=== PATIENT | female | born 1975 | race Asian ===

== ENCOUNTER 2017-09-04 00:56 | Emergency (ER) | payer MEDICAID ==
[~2017-09-04] VITALS: Ht 162.6 cm; Wt 53.5 kg
[~2017-09-04 00:56] MED LIST: DOCU-144 PO; FERR-57 PO; IBUP-1017 PO; OXYC-130 PO
[2017-09-04 01:05] VITALS: BP_SYST 112
[2017-09-04] MEDS ORDERED: CLINDAMYCIN HCL 150 MG CAPSULE PO ONE (02:00)
[2017-09-04 02:08] VITALS: BP_SYST 112
== END 2017-09-04 02:08 | disposition home or self-care (01) ==
LOC: SED 00:56
DX: L03.115 Cellulitis of right lower limb (principal); F17.200 Nicotine dependence, unspecified, uncomplicated; Z79.899 Other long term (current) drug therapy
CPT/HCPCS: 99283

== ENCOUNTER 2019-01-17 23:22 | Emergency (ER) | payer MEDICAID ==
[~2019-01-17] VITALS: Ht 162.6 cm; Wt 54.4 kg
[2019-01-17 23:55] VITALS: BP_SYST 131
--- NOTE | 2019-01-18 01:46 | NUR ---
Pt ambulatory to bed 8 for evaluation
[2019-01-18] MEDS ORDERED: BACITRACIN 1 GM OINT TP ONE (02:15)
[2019-01-18] MEDS ORDERED: LIDOCAINE 1% 10 MG/ML, 20 ML MDV IJ ONE (02:15)
[2019-01-18] MEDS ORDERED: DIPH-TET-PERTUS Vaccine 0.5 ML VIAL (ADACEL) IM ONE (02:15)
--- NOTE | 2019-01-18 02:15 | NUR ---
Dr. Souza bedside for Pt eval
--- NOTE | 2019-01-18 02:20 | NUR ---
Pt BIB family to ED C/O left upper eyelid abscess x 1 week. She was plucking her eyebrows when the injury occurred 1 week ago. Her vision is grossly intact but she has swelling on the left eyelid,- eye discharge. No other injuries and or complaints noted. VSS no s/s of acute distress. Resting on [address] rails up
[2019-01-18] MEDS ORDERED: cefTRIAXone 1 GM IVPB PREMIX 50 ML IV ONE (03:00)
[2019-01-18] MEDS ORDERED: MORPHINE 4 MG/ML INJ. SYRINGE IVP ONE (03:15)
--- NOTE | 2019-01-18 03:20 | NUR ---
VSS, no s/s of acute distress. Dr. Souza's bedside procedure well tolerated
[2019-01-18 04:00] VITALS: BP_SYST 132
--- NOTE | 2019-01-18 04:00 | NUR ---
Patient given written and verbal discharge instructions and verbalizes understanding. ER MD discussed with patient the results and treatment provided. Patient in stable condition. ID arm band removed. IV catheter removed intact and dressing applied, no active bleeding. Rx of clindamycin, Bacitracin and Tylenol with Codeine given. Patient educated on pain management and to follow up with PMD. Pain Scale 0/10 Opportunity for questions provided and answered. Medication side effect fact sheet provided.
== END 2019-01-18 04:00 | disposition home or self-care (01) ==
LOC: SED 23:22
DX: H00.034 Abscess of left upper eyelid (principal); Z79.899 Other long term (current) drug therapy
CPT/HCPCS: 10060; 90715; 96365; 96372; 96375; 99283; J0696; J2001; J2270

== ENCOUNTER 2019-01-20 03:23 | Emergency (ER) | payer MEDICAID ==
[~2019-01-20] VITALS: Ht 162.6 cm; Wt 54.4 kg
[2019-01-20 03:35] VITALS: BP_SYST 147
--- NOTE | 2019-01-20 03:35 | NUR ---
Pt ambulatory to bed 8 for evaluation
--- NOTE | 2019-01-20 03:35 | NUR ---
F/U for wound check s/p having a boil lanced and drained to the area beneath left eye brow. No s/s infection, no drainage to site, appears to be healing well. Ecchymosis noted to site and upper eyelid. Denies visual deficits and no c/o pain.
--- NOTE | 2019-01-20 03:55 | NUR ---
Dr. Hua at bedside.
[2019-01-20 06:08] VITALS: BP_SYST 133
--- NOTE | 2019-01-20 06:08 | NUR ---
Patient given written and verbal discharge instructions and verbalizes understanding. ER MD discussed with patient the results and treatment provided. Patient in stable condition. ID arm band removed. Rx of Motrin given. Patient educated on pain management and to follow up with PMD. Pain Scale 0/10. Opportunity for questions provided and answered. Medication side effect fact sheet provided.
== END 2019-01-20 06:08 | disposition home or self-care (01) ==
LOC: SED 03:23
DX: Z48.01 Encounter for change or removal of surgical wound dressing (principal); Z79.899 Other long term (current) drug therapy
CPT/HCPCS: 99284

== ENCOUNTER 2020-11-18 01:26 | Emergency (ER) | payer MEDICAID ==
[~2020-11-18] VITALS: Ht 162.6 cm; Wt 59.0 kg
[2020-11-18 01:47] VITALS: BP_SYST 136
[2020-11-18 03:16] LABS: BILIRUBIN,URINE NEGATIVE (NEGATIVE); BLOOD, URINE NEGATIVE (NEGATIVE); CLARITY/URINE CLEAR (CLEAR); COLOR,URINE YELLOW (YELLOW); GLUCOSE,URINE NEGATIVE (NEGATIVE); KETONES,URINE NEGATIVE (NEGATIVE); LEUKOCYTE ESTERASE ,URINE NEGATIVE (NEGATIVE); NITRITE, URINE NEGATIVE (NEGATIVE); PH,URINE 5.5 (5.0-8.0); PROTEIN URINE NEGATIVE (NEGATIVE); UROBILINOGEN,URINE 0.2 (0.2-1.0)
[2020-11-18 04:03] LABS: BASOPHILS % (AUTO) 0.4 % (0.0-2.0); EOSINOPHILS # (AUTO) 0.1 K/uL (0.0-0.4); EOSINOPHILS % (AUTO) 1.3 % (0.0-4.0); HEMATOCRIT 36.6 % (36-48); HEMOGLOBIN 12.4 g/dL (12.0-16.0); LYMPHOCYTES # (AUTO) 2.3 K/uL (1.0-5.5); LYMPHOCYTES % (AUTO) 25.1 % (20.5-51.5); MEAN CORPUSCULAR HEMOGLOBIN 31 pg (27-31); MEAN CORPUSCULAR HGB CONC 34 % (32-36); MEAN CORPUSCULAR VOLUME 91 fL (79.0-98.0); MONOCYTES # (AUTO) 0.9 K/uL (0.0-1.0); MONOCYTES % (AUTO) 9.2 % (1.7-9.3); NEUTROPHILS # (AUTO) 5.9 K/uL (1.8-7.7); PLATELET COUNT (AUTO) 294 K/uL (130-430); RED BLOOD CELL COUNT(AUTO) 4.03 MIL/uL (4.2-6.2); RED CELL DISTRIBUTION WIDTH 12.9 % (9.0-15.0); WHITE BLOOD COUNT (AUTO) 9.2 K/uL (4.8-10.8)
[2020-11-18 06:16] VITALS: BP_SYST 136
== END 2020-11-18 06:15 | disposition home or self-care (01) ==
LOC: SED 01:26
DX: O26.891 Other specified pregnancy related conditions, first trimester (principal); R10.30 Lower abdominal pain, unspecified; Z3A.01 Less than 8 weeks gestation of pregnancy; Z79.899 Other long term (current) drug therapy
CPT/HCPCS: 36415; 76805-TC; 81003; 81025; 84702; 85025; 86900; 86901; 99285

== ENCOUNTER 2021-08-06 08:07 | Emergency (ER) | payer MEDICAID ==
[~2021-08-06] VITALS: Ht 162.6 cm; Wt 59.0 kg
[2021-08-06 08:20] VITALS: BP_SYST 147
[2021-08-06] MEDS ORDERED: DIPH-TET-PERTUS Vaccine 0.5 ML VIAL (ADACEL) I.M. ONE (08:45)
[2021-08-06] MEDS ORDERED: BACITRACIN 1 GM OINT TP ONE (08:45)
[2021-08-06] MEDS ORDERED: LIDOCAINE 1% 10 MG/ML, 20 ML MDV INJ ONE (08:45)
[2021-08-06] MEDS ORDERED: IBUP-1969 PO (08:50)
[2021-08-06] MEDS ORDERED: CLIN-22 PO (08:50)
== END 2021-08-06 09:31 | disposition home or self-care (01) ==
LOC: SED 08:07
DX: L03.012 Cellulitis of left finger (principal); Z79.899 Other long term (current) drug therapy
CPT/HCPCS: 10060; 90471; 90715; 99284; J2001

== ENCOUNTER 2021-08-27 02:48 | Emergency (ER) | payer MEDICAID ==
[~2021-08-27] VITALS: Ht 162.6 cm; Wt 63.5 kg
[~2021-08-27 02:48] MED LIST changes: +CLIN-22 PO; +IBUP-1969 PO
[2021-08-27 02:58] VITALS: BP_SYST 145
[2021-08-27] MEDS ORDERED: KETOROLAC TROMETHAMINE 60 MG/2 ML VIAL IM ONE ×2 (03:30→03:33)
[2021-08-27] MEDS ORDERED: HYDR-3917 PO (03:34)
[2021-08-27] MEDS ORDERED: IBUP-1969 PO (03:34)
[2021-08-27 04:46] VITALS: BP_SYST 145
== END 2021-08-27 04:45 | disposition home or self-care (01) ==
LOC: SED 02:48
DX: M79.18 Myalgia, other site (principal); F17.200 Nicotine dependence, unspecified, uncomplicated; Z79.899 Other long term (current) drug therapy
CPT/HCPCS: 96372; 99283; J1885